=== PATIENT | female | born 1950 | race Two or more races ===

== ENCOUNTER 2021-10-18 12:15 | Inpatient (IN) | payer OTHER ==
[~2021-10-18] VITALS: Ht 152.4 cm; Wt 68.0 kg
[2021-10-18] MEDS ORDERED: VASOFLEX SOFTG1 EACH PO (14:31)
[2021-10-18] MEDS ORDERED: B12 ACTIVE1000 MCG PO (14:31)
[2021-10-18] MEDS ORDERED: ALTACE10 MG PO (14:31)
[2021-10-19] MEDS ORDERED: VITAMIN B-121000 MCG (10:30)
== END 2021-10-21 11:08 | disposition home or self-care (01) | DRG 741 ==
LOC: O/R 10-19 08:30 → OB/GYN 10-19 08:30 → SURH 10-19 10:45 → OB/GYN 10-19 18:42
PROVIDERS: ADMIT Specialist; ATTEND Specialist
PROC: 0UT24ZZ Resection of Bilateral Ovaries, Percutaneous Endoscopic Approach (ICD-10-PCS; 2021-10-19)
PROC: 0UT74ZZ Resection of Bilateral Fallopian Tubes, Percutaneous Endoscopic Approach (ICD-10-PCS; 2021-10-19)
PROC: 07BC4ZZ Excision of Pelvis Lymphatic, Percutaneous Endoscopic Approach (ICD-10-PCS; 2021-10-19)
PROC: 0UT94ZZ Resection of Uterus, Percutaneous Endoscopic Approach (ICD-10-PCS; principal; 2021-10-19 10:45)
DX: C54.1 Malignant neoplasm of endometrium (principal); N95.0 Postmenopausal bleeding; I10 Essential (primary) hypertension